=== PATIENT | female | born 1965 | race Caucasian/White ===

== ENCOUNTER 2020-02-17 09:27 | Outpatient (REF) | payer OTHER, SELFPAY ==
--- NOTE | 2020-02-17 09:35 | XR_ITS ---
EXAMINATION: XR CHEST CLINICAL INFORMATION: Cough COMPARISON: None TECHNIQUE: 2 views of the chest were obtained. FINDINGS: The cardiac silhouette does not appear enlarged. The descending thoracic aorta is slightly tortuous. Hilar and mediastinal contours are otherwise unremarkable. There is subsegmental atelectasis at the left lung base. The lungs are otherwise clear. There are mild degenerative changes of the lower thoracic spine. XR/XR chest 2V IMPRESSION: Subsegmental atelectasis at the left lung base. Otherwise unremarkable exam.
== END 2020-02-17 09:28 | disposition home or self-care (01) ==
LOC: HO.HMGCX 09:27
PROVIDERS: PCP Internal Medicine; Visit Provider Nurse Practitioner Family
DX: R05 Cough (principal)
CPT/HCPCS: 71046

== ENCOUNTER 2020-05-22 13:58 | Outpatient (REF) | payer OTHER, SELFPAY | END 2020-05-22 13:59 | disposition home or self-care (01) | LOC: HO.LAB 13:58 | PROVIDERS: Visit Provider Nurse Practitioner Family | DX: J02.9 Acute pharyngitis, unspecified (principal); Z20.822 Contact with and (suspected) exposure to COVID-19 | CPT/HCPCS: U0003; U0005 ==

== ENCOUNTER 2020-10-24 13:32 | Outpatient (REF) | payer OTHER, SELFPAY | END 2020-10-24 13:33 | disposition home or self-care (01) | LOC: HO.HMGCLDS 13:32 | PROVIDERS: PCP Internal Medicine; Visit Provider Internal Medicine | DX: Z20.822 Contact with and (suspected) exposure to COVID-19 (principal) | CPT/HCPCS: C9803; U0003; U0005 ==

== ENCOUNTER 2021-01-10 | Outpatient (REF) | payer OTHER, SELFPAY | END 2021-01-10 00:01 | disposition home or self-care (01) | LOC: HO.LNP | PROVIDERS: Visit Provider Physician Assistant Medical | DX: Z20.822 Contact with and (suspected) exposure to COVID-19 (principal); R05.9 Cough, unspecified | CPT/HCPCS: U0003; U0005 ==

== ENCOUNTER 2023-05-27 08:13 | Outpatient (AMB) | payer OTHER, SELFPAY ==
[2023-05-27 08:27] VITALS: BP 110/70; PULSE 87; O2SAT 98; BMI 27.5
--- NOTE | 2023-05-27 08:27 | AM.OFFWIN_ITS ---
Intake Vital Signs 3 05/27/23 08:27 Height 5 ft 4 in Weight 160 lb BMI 27.5 BP 110/70 Blood Pressure Location Rt brachial Position Sitting Pulse 87 Pulse Source Pulse Oximeter Pulse Oximetry (%) 98 Oxygen Delivery Method Room Air Intake Visit Reasons: EP Diverticulitis Patient Tobacco Use Status: Never used Tobacco Allergies clarithromycin [From Biaxin] Allergy (Unknown, Verified 05/27/23 08:29) Unknown doxycycline Allergy (Verified 05/27/23 08:29) hives Medication List - Last Reconciled 05/27/23 by Angela Howard MD levothyroxine 112 mcg PO DAILY Do you need a note to return to daycare/school/sports/work: Yes HPI EP Diverticulitis 2 HPI0 Details Patient is a 58-year-old female who has been having lower abdominal pain more so on the left side for the past 1 week There is no nausea vomiting no diarrhea, there is no dysuria there is no back pain There is no fever no chills She is able to move her bowels but tells me that there is a change in shape Patient had colonoscopy last year, as per her it was fine Patient says that she had similar pain a year ago and was diagnosed with diverticulitis On examination she is tender over left lower quadrant with deep pressure Patient does not look toxic I am treating her with metronidazole and Flagyl for 7 days Patient was instructed to eat light and bland meal more like chicken soup and liquids than solids Also instructed to follow with the primary care in 7 days [facility], [facility] Social History Patient Tobacco Use Status: Never used Tobacco Review of Systems Const All systems reviewed & are unremarkable except as noted in HPI and below Physical Exam Vital Signs: Last Vital Signs Pulse 87 05/27/23 08:27 BP 110/70 05/27/23 08:27 Pulse Ox 98 05/27/23 08:27 Oxygen Delivery Method Room Air 05/27/23 08:27 BMI result Body Mass Index 27.5 Const General: no acute distress Orientation/consciousness: patient oriented x3 Eyes General: appearance normal, both eyes and all related structures Resp Effort & Inspection: normal respiratory effort and able to speak in complete sentences Auscultation: clear to auscultation bilaterally Cardio Other: S1 S2 GI Abdomen image: 2 1. Pain with deep pressure, no rebound no guarding Neuro General: patient oriented x3 Psych Mental Status: mental status grossly normal Assessment & Plan Assessment & Plan (1) Acute diverticulitis: Code(s): K57.92 - Diverticulitis of intestine, part unspecified, without perforation or abscess without bleeding Plan Patient is a 58-year-old female who has been having lower abdominal pain more so on the left side for the past 1 week There is no nausea vomiting no diarrhea, there is no dysuria there is no back pain There is no fever no chills She is able to move her bowels but tells me that there is a change in shape Patient had colonoscopy last year, as per her it was fine Patient says that she had similar pain a year ago and was diagnosed with diverticulitis On examination she is tender over left lower quadrant with deep pressure Patient does not look toxic I am treating her with metronidazole and Flagyl for 7 days Patient was instructed to eat light and bland meal more like chicken soup and liquids than solids Also instructed to follow with the primary care in 7 days Medications: New 2 metronidazole 500 mg PO Q8H 7 days 21 tabs 0RF levofloxacin 500 mg PO DAILY 7 days 7 tabs 0RF Coding Level of Care Code Est Pt Level 4 (10845) Diagnoses Acute diverticulitis K57.92
== END 2023-05-27 09:42 | disposition home or self-care (01) ==
PROVIDERS: PCP Internal Medicine; Visit Provider Internal Medicine
DX: K57.92 Diverticulitis of intestine, part unspecified, without perforation or abscess without bleeding (principal)
CPT/HCPCS: 99214

== ENCOUNTER 2023-10-13 14:31 | Outpatient (AMB) | payer OTHER, SELFPAY ==
--- NOTE | 2023-10-13 14:45 | MHC.OFFWIV ---
Intake Vital Signs 10/13/23 14:46 Height 5 ft 4 in Weight 163 lb BMI 28.0 BP 118/82 Blood Pressure Location Rt brachial Position Sitting Pulse 82 Pulse Source Pulse Oximeter Temp 98.3 F Temp Source Oral Pulse Oximetry (%) 98 Oxygen Delivery Method Room Air Intake Visit Reasons: EP-brisell stuck inside mouth Intake Note: pt c/o tooth brush bristle stuck in mouth on side of throat. Happened last night Patient Tobacco Use Status: Never used Tobacco Allergies clarithromycin [From Biaxin] Allergy (Unknown, Verified 10/13/23 14:45) Unknown doxycycline Allergy (Verified 10/13/23 14:45) hives Do you need a note to return to daycare/school/sports/work: No HPI HPI Comments History of Present Illness Details Patient is a 58-year-old female complaining feeling like she has a toothbrush bursal stuck in her throat. She states she was brushing her teeth in the tooth brush head broke off in the pieces were all in her mouth and she feels like 1 got stuck in her throat but she can not see that far to see it. She denies any actual pain but just says it feels irritated. She has been gargling with warm water to try and get it out [facility] Social History Patient Tobacco Use Status: Never used Tobacco Review of Systems Const All systems reviewed & are unremarkable except as noted in HPI and below Physical Exam Vital Signs: Last Vital Signs Temp 98.3 F 10/13/23 14:46 Pulse 82 10/13/23 14:46 BP 118/82 10/13/23 14:46 Pulse Ox 98 10/13/23 14:46 Oxygen Delivery Method Room Air 10/13/23 14:46 BMI result Body Mass Index 28.0 Const General: cooperative, healthy appearing, comfortable and no acute distress Orientation/consciousness: patient oriented x3 Limitations: no limitations HEENT Head: Yes normal to inspection Ears: hearing grossly normal bilaterally and external ears normal General nose exam: Normal external nose present, Normal nares present and No nasal discharge present Face and sinus: Yes normal facial exam Mouth: Normal oral and palatal mucosa present and moist mucous membranes Throat: Yes posterior oropharynx normal, Yes tonsils normal and Yes uvula midline Eyes General: appearance normal, both eyes and all related structures Neck Neck: Yes normal visual inspection, Yes full ROM, Yes trachea midline and Yes supple Resp Effort & Inspection: normal respiratory effort, able to speak in complete sentences, no respiratory distress, not tachypneic, no tripod positioning and no use of accessory muscles Skin General skin exam: no rashes or lesions noted Neuro General: patient oriented x3 Extrem General: Yes normal to inspection and Yes no clubbing, cyanosis or edema Assessment & Plan Assessment & Plan (1) Throat irritation: Code(s): J39.2 - Other diseases of pharynx Plan: Unable to visualize the area patient is pointing to where she feels the irritation, her posterior oropharynx is clear and there is no sign of any tooth brush bristle being lodged in. I did explain that I do not have a laryngoscope and she likely needs somebody to look down there with the laryngoscope such as the emergency department. I recommended that she keep gargling and increase her fluids and go to the emergency department if there is no improvement in the irritation, if she coughs up any blood, or if her pain gets worse. Plan see above Coding Level of Care Code New Pt Level 3 (04703) Diagnoses Throat irritation J39.2
[2023-10-13 14:46] VITALS: BP 118/82; PULSE 82; TEMP 36.8; O2SAT 98; BMI 28.0
== END 2023-10-13 15:46 | disposition home or self-care (01) ==
PROVIDERS: PCP Internal Medicine; Visit Provider Physician Assistant
DX: J39.2 Other diseases of pharynx (principal)
CPT/HCPCS: 99213

== ENCOUNTER 2024-07-18 15:25 | Outpatient (AMB) | payer OTHER, SELFPAY ==
--- NOTE | 2024-07-18 15:34 | AM.OFFWIN_ITS ---
Intake Vital Signs 07/18/24 15:40 Height 5 ft 4 in Weight 164 lb BMI 28.1 BP 124/86 Blood Pressure Location Rt brachial Position Sitting Pulse 74 Pulse Source Pulse Oximeter Temp 97.7 F Temp Source Oral Pulse Oximetry (%) 98 Oxygen Delivery Method Room Air Intake Visit Reasons: EP head uyen removal Intake Note: Pt is here for today for back of head staple removal. Patient Tobacco Use Status: Never used Tobacco Allergies clarithromycin [From Biaxin] Allergy (Unknown, Verified 07/18/24 15:41) Unknown doxycycline Allergy (Verified 07/18/24 15:41) hives HPI HPI Comments History of Present Illness Details History of Present Illness - The patient is a 59-year-old female pr esenting for staple removal from a laceration on the scalp. - Sustained injury occurred after trippi ng when exiting a vehicle, leading to an emergency department visit last Thursday. - A total of 5 uyen were placed in [facility] emergency department to manage the scalp laceration. - Concern regarding staple removal inclu ded bleeding potential, for which reassurance was provided. - Subsequent to staple placement, the pa tient noted some crusting and scab formation, with one staple partially dislodged. - She denies pain, redness, warmth, blee ding, or discharge. She denies fever or chills. Physical Exam General: Cooperative, healthy appearing, comfortable, no acute distress and well developed Respiratory: Normal respiratory effort and able to speak in complete sentences. Clear to auscultation bilaterally Cardiovascular: Regular rate and rhythm. Normal S1 and S2 Skin: No rashes or lesions noted. #5 uyen noted intact on the right parietal region of the scalp. No active bleeding. Wounds are clean with scabbing noted. Neuro: Patient oriented x3 Procedure Wound cleaned with normal saline. #5 uyen removed with the provided staple remover. No complications. No bleeding or pain. Procedure was well tolerated. Patient was informed and verbally consented to the use of an ambient scribe for clinic note documentation during this visit. [facility] Social History Patient Tobacco Use Status: Never used Tobacco Review of Systems Const All systems reviewed & are unremarkable except as noted in HPI and below Physical Exam Vital Signs: Last Vital Signs Temp 97.7 F 07/18/24 15:40 Pulse 74 07/18/24 15:40 BP 124/86 07/18/24 15:40 Pulse Ox 98 07/18/24 15:40 Oxygen Delivery Method Room Air 07/18/24 15:40 BMI result Body Mass Index 28.1 Assessment & Plan Assessment & Plan (1) Encounter for staple removal: Code(s): Z48.02 - Encounter for removal of sutures (2) Encounter for re-check of laceration wound: Code(s): T14.8XXD - Other injury of unspecified body region, subsequent encounter Plan Most likely healing wound Plan - Removed scalp uyen without incident; ensured no foreign objects remained. - Keep wound clean and dry - wash hair normally. - Advised patient regarding hair washing and care of the scalp to prevent irritation of the healing site. - Instructed patient to observe for signs of infection and seek prompt care if these occur. Coding Level of Care Code Est Pt Level 3 (72295) Diagnoses Encounter for staple removal Z48.02 Encounter for re-check of laceration wound T14.8XXD
[2024-07-18 15:40] VITALS: BP 124/86; PULSE 74; TEMP 36.5; O2SAT 98; BMI 28.1
--- OUTSIDE RECORDS SUMMARY | 2024-07-18 17:09 | XMS_ITS | Encounter Summary ---
Author Organization [facility] [place] [address] Care Team Providers Care Lead Worker Of Housekeeping And Laundry Name Role Phone Francesca Joseph MD Primary Care Provider [phone] Encounter Details Date Type Department Care Team ([facility] st Contact Info) Description 07/18/2024 Telephone Adult Medicine [address] [phone] Ciara Rojas, RN Social History Tobacco Use Types Packs/Day Years Used Date Smoking Tobacco: Never Smokeless Tobacco: Never Alcohol Use Standard Drinks/Week Comments Yes 0 (1 standard drink = 0.6 oz pur e alcohol) 3 drinks on Saturdays Housing Instability Answer Date Recorde d Are you worried that in the next 2 months you may not have stable housing? Patient declined 03/16/2024 Food Access & Nutrition Answer Date Rec orded Do you have access to a vari ety of food including fruits and vegetables? Patient declined 03/16/2024 Access to Healthcare Answer Date Record ed Within the last 3 months, ho w many times did you visit the emergency department for your medical care? 0 03/16/2024 Health Literacy Answer Date Recorded How often do you need to hav e someone help you when you read instructions, pamphlets, or other written material from your doctor or pharmacy? Patient declined 03/16/2024 Caregiver: How often do you need to have someone help you when you read instructions, pamphlets, or other written material from your doctor or pharmacy? Not on file 025 Financial Risk Answer Date Recorded How hard is it for you to pa y for the very basics like food, housing, medical care, and air conditioning / heating? Patient declined 03/16/2024 Transportation Answer Date Recorded Has the lack of transportati on kept you from meetings, work, or from getting things needed for daily living? Patient declined 03/16/2024 Has the lack of transportati on kept you from medical appointments or from getting medications? Patient declined 03/16/2024 Social Isolation Answer Date Recorded How often do you feel lonely or isolated from those around you? Patient declined 03/16/2024 Food Risk Answer Date Recorded Within the past 12 months we worried whether our food would run out before we got money to buy more. Patient declined 025 Within the past 12 months th e food we bought just didn't last and we didn't have money to get more. Patient declined 06/2024 Dependent Care Answer Date Recorded Do you need help finding or paying for care for your loved ones. For example, child protective services specialist or elderly care for an older adult? Patient declined 03/16/2024 Education Answer Date Recorded Do you think completing more education or training, like finishing a GED, going to college, or learning a trade, would be helpful for you? Patient declined 03/16/2024 Employment and Income Answer Date Recor ded During the last four weeks, have you been actively looking for work? Patient declined 03/16/2024 Living Situation Answer Date Recorded What is your living situation? 0 03/16/2024 Comments No Sex and Gender Information Value Date Recorded Sex Assigned at Not on file Legal Sex Female 3:57 PM EST Gender Identity Not on file Sexual Orientation Not on file documented as of this encounter Plan of Treatment Upcoming Encounters Date Type Department Care Team (Late st Contact Info) Description 11/21/2024 3:40 PM EDT Office Visit Endocrinology - [address] [phone] Rachel Son PA [address] [place], [place] 12/19/2024 3:30 PM EST Appointment Radiology Department - [address] [phone] documented as of this encounter Visit Diagnoses Not on filedocumented in this encounter Additional Health Concerns Assessment Noted Time PHQ-9 Depression Total Score: 0 03/16/19 5:16 PM EST documented as of this encounter Care Teams Lead Worker Of Housekeeping And Laundry Relationship Specialty Start Date End Date Francesca Joseph MD [address] [place] [address] PCP - General Internal Medicine 03/21/24 documented as of this encounter
== END 2024-07-18 16:13 | disposition home or self-care (01) ==
PROVIDERS: PCP Internal Medicine; Visit Provider Physician Assistant Medical
DX: T14.8XXD Other injury of unspecified body region, subsequent encounter (principal); Z48.02 Encounter for removal of sutures

== ENCOUNTER → 2024-07-18 15:25 | Outpatient (BNVA) | payer OTHER, SELFPAY | PROVIDERS: PCP Internal Medicine; Visit Provider Physician Assistant Medical | DX: Z13.89 Encounter for screening for other disorder (principal) ==